=== PATIENT | male | born 1980 | race Caucasian/White ===

== ENCOUNTER 2024-04-28 09:02 | Observation (INO) ==
--- NOTE | 2024-04-28 09:11 | ED Physician Documentation ---
PD HPI URI Stated complaint Stated Complaint: FLU Chief complaint Chief Complaint: Fever History obtained from History obtained from: Patient, EMS and Other ([facility] - who saw pt and referred to ER due to being "very sick". ) History of Present Illness Timing - onset: How many weeks ago (onset a week ago of weakness, fevers, cough, poor appetite, nausea. Seen 5 days ago and Dx with Influenza A. Rx ZOfran and Ibuprofen. Has had general fatigue and now dyspnea work, wheezing, lightheaded. ) Timing duration: Weeks Timing details: Abrupt onset and Still present (with worsening cough and wheezing, and also feeling lightheaded/near syncope. ) Associated symptoms: Fever, Chills, Dry cough, Dyspnea and NVD; No Hemoptysis Contributing factors: Sick contact; No Travel or Immunocompromised Recently seen: Clinic (seen today at [facility] and noted hypoxic and hypotensive. EMS to ER. ) and Emergency Dept (5 days ago with initial viral symptoms and Dx with INfluenza. ) Meds/Allgy Home Medications Ambulatory Orders Medication Instructions Recorded Confirmed acetaminophen 500 mg capsule 1,000 mg (2 x 500 mg) PO Q8HR PRN 04/26/24 04/28/24 fever or pain #20 caps ibuprofen 200 mg capsule 800 mg (4 x 200 mg) PO TID PRN 04/26/24 04/28/24 fever or pain #90 caps ondansetron 4 mg disintegrating 4 mg translingual Q8H PRN Nausea / 04/26/24 04/28/24 tablet Vomiting #10 tabs Allergies Allergies Allergy/AdvReac Type Severity Reaction Status Date / Time No Known Drug Allergies Allergy Verified 04/28/24 09:14 PFSH Active Problems All Active Problems (Updated 04/28/24 @ 18:39 by Sly Newton DNP) Acute hypoxic respiratory failure (Acute) Hypoxia (Acute) Transient hypotension (Acute) Dehydration (Acute) Pneumonia (Acute) Fever (Acute) Fatigue (Acute) Nausea & vomiting (Acute) Acute sore throat (Acute) Generalized muscle ache (Acute) Influenza A (Acute) Medical History Medical History No pertinent past medical history Surgical History Surgical History No pertinent past surgical history Social History Social History Smoking Status: Current every day smoker If you are a former smoker, when did you quit? (Date/Year): 5 Number of Years Smoked: 20 How many cigarettes a day do you smoke? (20 cigarettes=1 Pk): 10 Do you dip or chew tobacco?: No Do you vape?: No Patient requests smoking cessation consult: No Initiate information on smoking cessation: No Relationship: Level: Independent Do you feel safe in your home environment?: No Suffered physical, verbal, emotional, or financial abuse?: No Frequency: Occasional Substance Use: cannabis (any form) POLST Patient has POLST: No Exam Constitutional normal general appearance, distress noted (moderate) (general weakness, dyspnea. ) and average body habitus HENMT TMs normal bilaterally and oropharynx normal Neck/C-Spine supple and no meningeal signs Lymph no lymphadenopathy noted Respiratory breath sounds unequal (somewhat decreased left base), abnormal respiratory effort (labored), wheezing noted (expiratory wheezes) and no rales Cardiovascular normal heart rate noted, regular rhythm noted and no edema Gastrointestinal abdomen soft to palpation and nontender to palpation Neurology no focal motor deficit noted, no sensory deficits noted and speech normal Psychiatry mental status grossly normal, oriented x3, thought process normal and cooperative Results Vitals Vitals: Vital Signs - 24 hr 04/28/24 09:14 04/28/24 09:30 04/28/24 09:40 Temperature 39.2 C H Temperature Source Oral Pulse Rate 85 Pulse Rate [Sitting] Pulse Rate [Standing] Respiratory Rate 20 Blood Pressure 97/71 Blood Pressure [Sitting] Blood Pressure [Standing] O2 Saturation 93 Oxygen Delivery Method O2 Source Room air Oxygen Flow Rate If not protocol: Oxygen Flow, liters/minute Pain Intensity 5 5 5 04/28/24 09:44 04/28/24 10:24 04/28/24 10:47 Temperature Temperature Source Pulse Rate 90 96 Pulse Rate [Sitting] 91 Pulse Rate [Standing] 105 H Respiratory Rate 20 18 Blood Pressure 126/56 L Blood Pressure [Sitting] 107/68 Blood Pressure [Standing] 93/69 O2 Saturation 94 Oxygen Delivery Method O2 Source Room air Oxygen Flow Rate If not protocol: Oxygen Flow, liters/minute Pain Intensity 04/28/24 10:50 04/28/24 11:00 04/28/24 11:13 Temperature Temperature Source Pulse Rate 79 92 Pulse Rate [Sitting] Pulse Rate [Standing] Respiratory Rate 20 Blood Pressure Blood Pressure [Sitting] Blood Pressure [Standing] O2 Saturation 92 89 L Oxygen Delivery Method O2 Source Room air Nasal cannula Oxygen Flow Rate If not protocol: Oxygen Flow, liters/minute 2 Pain Intensity 04/28/24 11:43 04/28/24 12:13 04/28/24 12:23 Temperature 37.6 C Temperature Source Oral Pulse Rate 84 91 Pulse Rate [Sitting] Pulse Rate [Standing] Respiratory Rate 20 Blood Pressure 105/65 Blood Pressure [Sitting] Blood Pressure [Standing] O2 Saturation 93 89 L 88 L Oxygen Delivery Method O2 Source Nasal cannula Room air Room air Oxygen Flow Rate If not protocol: Oxygen Flow, liters/minute 2 0 Pain Intensity 04/28/24 12:30 04/28/24 12:31 04/28/24 14:50 Temperature Temperature Source Pulse Rate 79 Pulse Rate [Sitting] Pulse Rate [Standing] Respiratory Rate Blood Pressure Blood Pressure [Sitting] Blood Pressure [Standing] O2 Saturation 85 L 89 L Oxygen Delivery Method O2 Source Room air Nasal cannula Oxygen Flow Rate If not protocol: Oxygen Flow, liters/minute 0 2 Pain Intensity 2 04/28/24 14:59 04/28/24 15:58 04/28/24 15:58 Temperature 37.2 C Temperature Source Pulse Rate 77 76 Pulse Rate [Sitting] Pulse Rate [Standing] Respiratory Rate 22 18 Blood Pressure 116/71 109/72 Blood Pressure [Sitting] Blood Pressure [Standing] O2 Saturation 94 91 L Oxygen Delivery Method Nasal Cannula O2 Source Nasal cannula Nasal cannula Oxygen Flow Rate 2 If not protocol: Oxygen Flow, liters/minute 2 2 Pain Intensity 0 0 04/28/24 17:12 Temperature Temperature Source Pulse Rate 74 Pulse Rate [Sitting] Pulse Rate [Standing] Respiratory Rate Blood Pressure 106/79 Blood Pressure [Sitting] Blood Pressure [Standing] O2 Saturation 94 Oxygen Delivery Method O2 Source Nasal cannula Oxygen Flow Rate If not protocol: Oxygen Flow, liters/minute 2 Pain Intensity 0 Oxygen O2 Source Nasal cannula Oxygen Flow Rate 2 Labs Labs: Laboratory Tests 04/28/24 10:03 WBC 4.4 L RBC 5.15 Hgb 15.9 Hct 44.6 MCV 86.6 MCH 30.9 MCHC 35.7 RDW 11.7 L Plt Count 107 L MPV 11.0 Neut # (Auto) Not Reportable Lymph # (Auto) Not Reportable [place] # (Auto) Not Reportable Eos # (Auto) Not Reportable Baso # (Auto) Not Reportable Absolute Nucleated RBC Not Reportable Total Counted 100 Band Neuts % (Manual) 3 Abnorm Lymph % (Manual) 0 Plasma Cell % (Manual) 1 Nucleated RBC % Not Reportable Neutrophils # (Manual) 3.1 Lymphocytes # (Manual) 1.1 L Monocytes # (Manual) 0.1 Eosinophils # (Manual) 0.0 Basophils # (Manual) 0.0 Differential Comment MANUAL DIFFERENTIAL Platelet Estimate DECREASED (<130,000) Platelet Morphology NORMAL APPEARANCE RBC Morph Micro Appear NORMAL APPEARANCE Sodium 127 L Potassium 3.0 L Chloride 91 L Carbon Dioxide 27 Anion Gap 9.0 BUN 18 Creatinine 0.9 Estimated GFR (MDRD) 93 Glucose 107 H Lactic Acid 1.1 Calcium 7.6 L Total Bilirubin 0.5 AST 229 H ALT 88 H Alkaline Phosphatase 62 Total Protein 6.1 L Albumin 3.5 Globulin 2.6 Albumin/Globulin Ratio 1.3 Lipase 198 H Procalcitonin Immunoas 0.20 Rads (name of study) chest xray: Relevant Findings:: Final report received (some forming infiltrate left lower base) PD Medical Decision Making ED course Complexity details: re-evaluated patient (pt subsequently less wheezing and labored only after 3 nab treatments, fluids and meds. Initially hypotensive and improved with fluids, though repeat vitals still postural hypotension. Repeated IV fluids given. Remaines then normotensive. ), considered differential (flu Dx with symptoms the past week, worsening cough/wheeze/dyspnea. Consider viral vs xecondary pneumonia. CXR having infiltrate left base. He is hypoxic and remains at 88-89% RA jameson after several neb treatments. Also given steroids. Given rocephine/zithromax with CXR showing possible pneumonia. 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 ) Critical Care Critical Care Provided: Yes Time(min): 50 Time Includes: Direct patient care, Review records, Reassess patient, Document care, Coordinate care and Medical consult Data interpretation: Labs, Pulse ox and CXR Discharge Plan Discharge Patient Disposition: ED Place in Observation Condition: Stable Clinical Impression: Pneumonia, Influenza A, Fatigue, Transient hypotension, Hypoxia Interventions: ED Admission Assessment Last Done: 04/28/24 17:12
[2024-04-28] MEDS: KETOROLAC 15 MG/ML VIAL IVP STA (09:30)
--- NOTE | 2024-04-28 09:30 | XRAY Report ---
PROCEDURE: XR Chest 1V INDICATIONS: cough worsening; flu a TECHNIQUE: One view of the chest was acquired. COMPARISON: 04/26/2024. FINDINGS: Surgical changes and devices: None. Lungs and pleura: No pleural effusions or pneumothorax suggestion of subtle infiltrate, left lung, p rogressive from yesterday. Mediastinum: Mediastinal contours appear normal. Heart size is normal. Bones and chest wall: No suspicious bony lesions. Overlying soft tissues appear unremarkable. IMPRESSION: Probable developing subtle left lung infiltrate. Comment: Consider PA and lateral chest films Reviewed by: Rashi Lanier MD on 04/28/2024 9:28 AM PDT Approved by: Rashi Lanier MD on 04/28/2024 9:28 AM PDT Station ID: [id number]
[2024-04-28] MEDS: BENZONATATE 100 MG CAPSULE PO STA (09:32)
[2024-04-28] MEDS: MAG HYDROX/AL HYDROX/SIMETH 30 ML UDC PO STA (09:33)
[2024-04-28] MEDS: droPERidol 2.5 MG/ML VIAL IVP STA (09:34)
[2024-04-28] MEDS: SODIUM CHLORIDE 0.9% 1,000 ML IV STA ×2 (09:38→11:04)
[2024-04-28] MEDS: ACETAMINOPHEN 325 MG TABLET PO STA (09:40)
[2024-04-28] MEDS: ALBUTEROL NEB 2.5 MG/3 ML INH STA ×3 (09:41→13:01)
[2024-04-28 10:11] LABS: BASOPHILS % (AUTO) 0.5 %; HCT - HEMATOCRIT 44.6 % (42.0-52.0); HGB - HEMOGLOBIN 15.9 g/dL (14.0-18.0); LYMPHOCYTES % (AUTO) 24.6 %; MEAN CORPUSCULAR HEMOGLOBIN 30.9 pg (27.0-31.0); MEAN CORPUSCULAR HGB CONC 35.7 g/dL (32.0-36.0); MEAN CORPUSCULAR VOLUME 86.6 fL (80.0-94.0); NEUTROPHILS % (AUTO) 72.4 %; PLT - PLATELET COUNT 107 10^3/uL (130-450); RED BLOOD COUNT 5.15 10^6/uL (4.70-6.10); RED CELL DISTRIBUTION WIDTH 11.7 % (12.0-15.0); WHITE BLOOD COUNT 4.4 x10^3/uL (4.8-10.8)
[2024-04-28 10:13] LABS: ABNORMAL LYMPHS % (MANUAL) 0 %
[2024-04-28 10:23] LABS: ALBUMIN 3.5 g/dL (3.2-5.5); ALBUMIN/GLOBULIN RATIO 1.3 (1.0-2.2); BILIRUBIN,TOTAL 0.5 mg/dL (0.2-1.0); CALCIUM 7.6 mg/dL (8.5-10.3); CREATININE 0.9 mg/dL (0.6-1.3); TOTAL PROTEIN 6.1 g/dL (6.4-8.9)
[2024-04-28 10:52] LABS: BAND NEUTROPHILS % (MANUAL) 3 %; LYMPHOCYTES # (MANUAL) 1.1 10^3/uL (1.5-3.5); LYMPHOCYTES % (MANUAL) 25 %; MONOCYTES # (MANUAL) 0.1 10^3/uL (0.0-1.0); NEUTROPHILS # (MANUAL) 3.1 10^3/uL (1.5-6.6); PLASMA CELLS % (MANUAL) 1 %
[2024-04-28 10:53] LABS: DIFFERENTIAL COMMENT MANUAL DIFFERENTIAL; PLATELET ESTIMATE, MANUAL DECREASED (<130,000) (NORMAL); PLATELET MORPHOLOGY NORMAL APPEARANCE (NORMAL); RBC MORPHOLOGY (MULTIPLE) NORMAL APPEARANCE (NORMAL)
[2024-04-28] MEDS: DEXAMETHASONE 10 MG/ML VIAL IVP STA (11:08)
[2024-04-28] MEDS: cefTRIAXone 1 GM VIAL IVP STA (11:09)
[2024-04-28] MEDS: AZITHROMYCIN 250 MG TABLET PO STA (12:56)
[2024-04-28] MEDS: ACETAMINOPHEN 325 MG TABLET PO SCH ×2 (14:50→20:08)
[2024-04-28] MEDS: BENZONATATE 100 MG CAPSULE PO PRN (15:55)
--- NOTE | 2024-04-28 16:53 | HISTORY & PHYSICAL EXAMINATION ---
History of Present Illness Admitted From Admitted From:: Home with ficlarence History Obtained From History obtained from: Jhonatan at bedside History of Present Illness HPI Comment/Other: 43-year-old male PMH significant for tobacco abuse with a [id number] history has been sick with the flu for 3 days now. He presented to the ER today feeling particularly sick with fevers, chills, shortness of breath, severe coughing. In the ER, chest x-ray was performed which showed probable developing subtle left lung infiltrate. He was also noted to have sodium of 127. He was also hypoxic and spite of multiple breathing treatments requiring 2 L O2. Hospitalist was contacted for possible admission for acute hypoxic respiratory failure, influenza, community-acquired pneumonia Meds/Allgy Home Medications Ambulatory Orders Medication Instructions Recorded Confirmed acetaminophen 500 mg capsule 1,000 mg (2 x 500 mg) PO Q8HR PRN 04/26/24 04/28/24 fever or pain #20 caps ibuprofen 200 mg capsule 800 mg (4 x 200 mg) PO TID PRN 04/26/24 04/28/24 fever or pain #90 caps ondansetron 4 mg disintegrating 4 mg translingual Q8H PRN Nausea / 04/26/24 04/28/24 tablet Vomiting #10 tabs Allergies Allergies Allergy/AdvReac Type Severity Reaction Status Date / Time No Known Drug Allergies Allergy Verified 04/28/24 09:14 PFSH Active Problems All Active Problems (Updated 04/28/24 @ 18:39 by Sly Newton DNP) Acute hypoxic respiratory failure (Acute) Hypoxia (Acute) Transient hypotension (Acute) Dehydration (Acute) Pneumonia (Acute) Fever (Acute) Fatigue (Acute) Nausea & vomiting (Acute) Acute sore throat (Acute) Generalized muscle ache (Acute) Influenza A (Acute) Medical History Medical History No pertinent past medical history Surgical History Surgical History No pertinent past surgical history Social History Social History Smoking Status: Current every day smoker If you are a former smoker, when did you quit? (Date/Year): 5 Number of Years Smoked: 20 How many cigarettes a day do you smoke? (20 cigarettes=1 Pk): 10 Do you dip or chew tobacco?: No Do you vape?: No Patient requests smoking cessation consult: No Initiate information on smoking cessation: No Relationship: Level: Independent Do you feel safe in your home environment?: No Suffered physical, verbal, emotional, or financial abuse?: No Frequency: Occasional Substance Use: cannabis (any form) POLST Patient has POLST: No Review of Systems Status of ROS: 10 or more systems reviewed and unremarkable except as noted in history and below Constitutional Reports: Fever, Chills and Malaise Cardiovascular Reports: shortness of breath with exertion; Denies: chest pain or palpitations Respiratory Reports: Shortness of breath and Cough Gastrointestinal Denies: Abdominal pain or Abdominal distention Genitourinary Denies: Painful urination Exam Constitutional normal general appearance and no apparent distress Ill-appearing HENMT normocephalic and head/scalp atraumatic Eyes PERRL Lymph no lymphadenopathy noted Chest inspection of chest normal and palpation of chest normal Respiratory breath sounds equal bilaterally Diminished breath sounds Cardiovascular normal heart rate noted Gastrointestinal abdomen normal to inspection and abdomen soft to palpation Extremities normal to inspection Neurology GCS 15 Psychiatry oriented x3 Skin skin color normal Conclusion/Plan Problem List (1) Acute hypoxic respiratory failure: Plan: Secondary to influenza with possible superimposed bacterial pneumonia O2 as needed DuoNeb RT 4 times daily as needed Manage influenza and pneumonia as below (2) Pneumonia: Plan: Chest x-ray with probable developing subtle left lung infiltrate Check procalcitonin Empirically starting on ceftriaxone 1 g IV daily as well as azithromycin 500 mg p.o. daily Encourage pulmonary hygiene Qualifiers: Pneumonia type: due to unspecified organism Laterality: bilateral Lung location: unspecified part of lung Qualified Code(s): J18.9 - Pneumonia, unspecified organism (3) Influenza A: Plan: Outside the window for Tamiflu DuoNeb RT 4 times daily as needed Will consider steroid if oxygenation worsens Plan Placed in observation as I anticipate a quick turnaround Full code Undecided if his fiance or sister is a surrogate decision-maker Lab Results Lab results reviewed: Yes 04/28/24 10:03 04/28/24 10:03 Core Measures Anticipated LOS I expect patient to be DC'd or transferred within 96 hours.: Yes DVT/VTE - Prophylaxis VTE/DVT Prophylaxis med ordered at admit?: Yes
[2024-04-28] MEDS: ALBUTEROL 1 PUFF INH SCH (16:58)
[2024-04-28] MEDS ORDERED: SODIUM CHLORIDE FLUSH 0.9% 10 ML SYRINGE IVP PRN (17:40)
[2024-04-28] MEDS ORDERED: ONDANSETRON ODT 4 MG TABLET TL PRN (17:40)
[2024-04-28] MEDS ORDERED: ONDANSETRON 4 MG/2 ML VIAL IVP PRN (17:40)
[2024-04-28] MEDS: guaiFENesin 600 MG TABLET PO SCH (20:08)
[2024-04-28] MEDS: SODIUM CHLORIDE FLUSH 0.9% 10 ML SYRINGE IVP SCH (20:10)
[2024-04-28] MEDS: POTASSIUM CHLORIDE 20 MEQ TABLET PO ONE (22:24)
[2024-04-29] MEDS: guaiFENesin/DEXTROMETHORPHAN 10 ML UDC PO PRN (04:44)
[2024-04-29 05:44] LABS: HCT - HEMATOCRIT 44.2 % (42.0-52.0); HGB - HEMOGLOBIN 15.4 g/dL (14.0-18.0); LYMPHOCYTES # (AUTO) 1.5 10^3/uL (1.5-3.5); MEAN CORPUSCULAR HEMOGLOBIN 30.8 pg (27.0-31.0); MEAN CORPUSCULAR HGB CONC 34.8 g/dL (32.0-36.0); MEAN CORPUSCULAR VOLUME 88.4 fL (80.0-94.0); MEAN PLATELET VOLUME 11.4 fL (7.4-11.4); MONOCYTES # (AUTO) 0.2 10^3/uL (0.0-1.0); MONOCYTES % (AUTO) 4.4 %; NEUTROPHILS # (AUTO) 3.6 10^3/uL (1.5-6.6); PLT - PLATELET COUNT 121 10^3/uL (130-450); RED CELL DISTRIBUTION WIDTH 12.2 % (12.0-15.0); WHITE BLOOD COUNT 5.4 x10^3/uL (4.8-10.8)
[2024-04-29 05:50] LABS: SLIDE REVIEW? Indicated
[2024-04-29 06:04] LABS: CALCIUM 8.5 mg/dL (8.5-10.3); CREATININE 0.9 mg/dL (0.6-1.3); POTASSIUM 3.5 mmol/L (3.5-4.5)
[2024-04-29 06:22] LABS: DIFFERENTIAL COMMENT MANUAL=AUTO DIFF; PLATELET ESTIMATE, MANUAL DECREASED (<130,000) (NORMAL); PLATELET MORPHOLOGY NORMAL APPEARANCE (NORMAL); RBC MORPHOLOGY (MULTIPLE) NORMAL APPEARANCE (NORMAL); WBC MORPHOLOGY (MULTIPLE) NORMAL APPEARANCE (NORMAL)
[2024-04-29] MEDS: AZITHROMYCIN 250 MG TABLET PO SCH (08:50)
[2024-04-29] MEDS: dexAMETHasone 4 MG TABLET PO SCH (08:50)
[2024-04-29] MEDS: cefTRIAXone 1 GM VIAL IVP SCH (08:50)
[2024-04-29] MEDS: ENOXAPARIN 40 MG/0.4 ML SYRINGE SUBQ SCH (08:50)
[2024-04-29] MEDS ORDERED: IPRATROPIUM/ALBUTEROL 3 ML NEB INH PRN (10:03)
[2024-04-29 10:23] LABS: ALBUMIN 3.4 g/dL (3.2-5.5); BILIRUBIN,DIRECT 0.11 mg/dL (0.03-0.18); BILIRUBIN,TOTAL 0.4 mg/dL (0.2-1.0); TOTAL PROTEIN 5.9 g/dL (6.4-8.9)
[2024-04-29 12:13] VITALS: BP 111/74
[2024-04-29] MEDS: THIAMINE 100 MG/1 ML 2 ML MDV IVP ONE (16:01)
[2024-04-29] MEDS: LACTATED RINGERS 1,000 ML IV ONE (16:01)
[2024-04-29 16:33] VITALS: TEMP 98.1; O2SAT 93
--- NOTE | 2024-04-29 16:56 | Discharge Summary ---
Discharge Summary Admit Date: 04/28/24 Discharge Date: 04/29/24 Discharging Provider: Sly Newton NP Primary Care Provider: Not currently established Code Status: Attempt Resuscitation DIAGNOSES Admission Diagnoses: Acute hypoxemic respiratory failure Community-acquired pneumonia Influenza A Hyponatremia Discharge Diagnoses with Status of Each Condition: Acute hypoxemic respiratory failureresolved Community-acquired pneumonianegative procalcitonin, this is viral Influenza Astabilized, being sent home on steroid Hyponatremiaresolved HPI History of Present Illness: 43-year-old male H significant for tobacco abuse with a [id number] history has been sick with the flu for 3 days now. He presented to the ER today feeling particularly sick with fevers, chills, shortness of breath, severe coughing. In the ER, chest x-ray was performed which showed probable developing subtle left lung infiltrate. He was also noted to have sodium of 127. He was also hypoxic and spite of multiple breathing treatments requiring 2 L O2. Hospitalist was contacted for possible admission for acute hypoxic respiratory failure, influenza, community-acquired pneumonia HOSPITAL COURSE Hospital Course: He was placed in observation and started on Rocephin and Zithromax. Procalcitonin was checked and found to be negative, so Rocephin was discontinued. He is better today after aggressive IV fluid resuscitation, thiamine supplementation, p.o. steroid. He is being discharged home with cough suppressants, mucolytic's, and 2 more days of Decadron, 1 more day of azithromycin. He is not established with a primary care provider, but has been given a list of primary care providers and has been instructed to follow-up. Respiratory therapy performed oxygen desaturation study, and he does not need any oxygen at discharge ALLERGIES Allergies Allergy/AdvReac Type Severity Reaction Status Date / Time No Known Drug Allergies Allergy Verified 04/28/24 09:14 MEDICATIONS Ambulatory Orders Medication Instructions Recorded Confirmed acetaminophen 500 mg capsule 1,000 mg (2 x 500 mg) PO Q8HR PRN 04/26/24 04/29/24 fever or pain #20 caps ibuprofen 200 mg capsule 800 mg (4 x 200 mg) PO TID PRN 04/26/24 04/29/24 fever or pain #90 caps azithromycin 500 mg tablet 500 mg PO DAILY 1 day #1 tab 04/29/24 benzonatate 150 mg capsule 150 mg PO QID #30 caps 04/29/24 dexamethasone 4 mg tablet 4 mg PO DAILY #2 tabs 04/29/24 dextromethorphan-guaifenesin 10 10 ml PO Q4H PRN cough #800 mL 04/29/24 mg-100 mg/5 mL oral liquid guaifenesin 1,200 mg tablet, 1,200 mg PO BID 5 days #10 tabs 04/29/24 extended release 12 hr PHYSICAL EXAM AT DISCHARGE General Appearance: positive No acute distress and Alert Eyes Bilateral: positive Normal inspection and PERRL ENT: positive ENT inspection nml Neck: positive Nml inspection Respiratory: positive Chest non-tender and Rhonchi Cardiovascular: positive Regular rate & rhythm Peripheral Pulses: positive 2+ Abdomen: positive Non-tender Skin: positive Color nml Extremities: positive Non-tender Neurologic/Psychiatric: positive Oriented x3 LABS 04/29/24 05:03 04/29/24 05:03 FOLLOW UP Follow Up: He has been instructed to establish himself with a PCP TIME SPENT Time Spent in Discharge (Minutes): 35 Discharge Plan Discharge Patient Disposition: Home, Self Care Condition: Stable Medically Cleared Date:: 04/29/24 Prescriptions: New guaifenesin 1,200 mg tablet extended release 12hr 1,200 mg PO BID 5 Days Qty: 10 0RF benzonatate 150 mg capsule 150 mg PO QID Qty: 30 0RF dexamethasone 4 mg tablet 4 mg PO DAILY Qty: 2 0RF azithromycin 500 mg tablet 500 mg PO DAILY 1 Days Qty: 1 0RF dextromethorphan-guaifenesin 10-100 mg/5 mL liquid 10 ml PO Q4H PRN (Reason: cough) Qty: 800 0RF Continued acetaminophen 500 mg capsule 1,000 mg PO Q8HR PRN (Reason: fever or pain) Qty: 20 0RF ibuprofen 200 mg capsule 800 mg PO TID PRN (Reason: fever or pain) Qty: 90 0RF Diet: Regular Health Concerns: You came into the hospital because you have not been doing well with your influenza. In the ER, you were noted to have a low O2 level, so you were held in the hospital while we gave you steroids and IV fluids to help with your influenza. I have checked lab work that rules out a superimposed bacterial pneumonia. Today, your on room air I am discharging you home. I am sending you with another day of azithromycin, as it has some anti-inflammatory properties that would help with your breathing. I have ordered several types of cough suppressant and expectorant including Tessalon pearls, Robitussin syrup, Mucinex tabs. I have also ordered another 2 days of Decadron. Please try and drink as much water as she can, and eat plenty of food. Stay as active as possible to prevent developing a pneumonia. Please seek medical attention if this does not resolve over the next week or if your symptoms worsen. Print Language: Maldivian Patient Instructions: ED Flu Stand Alone Forms: PCP List
== END 2024-04-29 18:08 | disposition home or self-care (01) ==
LOC: MS2 09:02 → ED 09:02 → MS2 17:21
PROVIDERS: ADMIT Nurse Practitioner Acute Care; ATTEND Nurse Practitioner Acute Care
DX: F17.210 Nicotine dependence, cigarettes, uncomplicated; J10.00 Influenza due to other identified influenza virus with unspecified type of pneumonia; E86.0 Dehydration; E87.1 Hypo-osmolality and hyponatremia; I95.89 Other hypotension; J96.01 Acute respiratory failure with hypoxia